=== PATIENT | male | born 1975 | race Caucasian/White ===

== ENCOUNTER 2018-06-04 10:19 | Emergency (ER) | payer OTHER ==
[~2018-06-04] VITALS: Ht 185.4 cm; Wt 79.4 kg
[2018-06-04 10:39] VITALS: BP 152/66
== END 2018-06-04 11:59 | disposition home or self-care (01) ==
LOC: ER 10:26
DX: S63.502A Unspecified sprain of left wrist, initial encounter (principal); W10.9XXA Fall (on) (from) unspecified stairs and steps, initial encounter; Y93.89 Activity, other specified; Y92.89 Other specified places as the place of occurrence of the external cause; Y99.8 Other external cause status
CPT/HCPCS: 73110; A4606; Z7610